=== PATIENT | female | born 1970 | race Caucasian/White ===

== ENCOUNTER 2023-04-20 09:52 | Emergency (ER) | payer OTHER ==
[2023-04-20 10:07] VITALS: BP 146/77; PULSE 70; RESP 18; TEMP 98.3; BMI 32.1
[2023-04-20] MEDS ORDERED: IBUPROFEN 600 MG TABLET (FP) PO ONE ×2 (10:59→11:02)
== END 2023-04-20 11:18 | disposition home or self-care (01) ==
LOC: JERFT 09:52
DX: M79.672 Pain in left foot (principal)
CPT/HCPCS: 99282-25